=== PATIENT | female | born 1965 | race Caucasian/White ===

== ENCOUNTER 2017-02-13 13:25 | Emergency (ER) | payer MEDICARE, OTHER ==
[~2017-02-13 13:25] MED LIST: NAPROSYN250 MG PO
[2017-02-13 14:11] LABS: HEMOGLOBIN 14.4 gm/dl (12.3-15.3); RED BLOOD COUNT 4.54 M/UL (4.00-5.10); WHITE BLOOD COUNT 13.6 K/UL (4.5-11.0)
[2017-02-13 15:08] LABS: BUN/CREATININE RATIO 15 (0-10)
== END 2017-02-13 18:33 | disposition home or self-care (01) ==
LOC: ER1 13:25
PROVIDERS: Family Medicine
DX: R11.2 Nausea with vomiting, unspecified (principal); R51 Headache; M79.602 Pain in left arm; F17.200 Nicotine dependence, unspecified, uncomplicated; Z88.5 Allergy status to narcotic agent
CPT/HCPCS: 36415; 70450; 80053; 84484; 85025; 93005; 96374; 96375; 96376; 99284; J1200; J2270; J2405; J2765; J7030; J7040